=== PATIENT | male | born 1990 | race Two or more races ===

== ENCOUNTER 2022-05-20 02:52 | Emergency (ER) | payer OTHER ==
[2022-05-20 02:56] VITALS: BP 145/97
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
--- NOTE | 2022-05-20 07:32 | CT Report ---
PROCEDURE: HEAD WO INDICATIONS: ETOH/Head injury TECHNIQUE: Noncontrast 4.5 mm thick angled axial sections acquired from the foramen magnum to the vertex. For r adiation dose reduction, the following was used: automated exposure control, adjustment of mA and/or kV according to patient size. COMPARISON: None. FINDINGS: Image quality: Excellent. CSF spaces: Basal cisterns are patent. No extra-axial fluid collections. Ventricles are normal in size and shape. Brain: No midline shift. No intracranial masses or hemorrhage. Valdez-white matter interface is norm al. Skull and face: Calvarium and visualized facial bones are intact, without suspicious lesions. Sinuses: Visualized sinuses and mastoids are clear. IMPRESSION: No acute intracranial finding. Reviewed by: Parker Tucker MD on 05/20/2022 7:30 AM PDT Approved by: Parker Tucker MD on 05/20/2022 7:30 AM PDT Station ID: [id number]
--- NOTE | 2022-05-20 07:32 | CT Report ---
PROCEDURE: CERVICAL SPINE WO INDICATIONS: neck pain/ETOH TECHNIQUE: Noncontrast 3 mm thick sections acquired from the skull base to the T4 level. Sagittal and coronal r eformats were then constructed. For radiation dose reduction, the following was used: automated exp osure control, adjustment of mA and/or kV according to patient size. COMPARISON: None. FINDINGS: Image quality: Excellent. Bones: No fractures or dislocations. Visualized superior ribs are intact. Soft tissues: Prevertebral soft tissues are normal in thickness. No paravertebral hematomas. No ap ical pneumothoraces. IMPRESSION: No CT evidence of acute traumatic cervical spine injury. Reviewed by: Parker Tucker MD on 05/20/2022 7:31 AM PDT Approved by: Parker Tucker MD on 05/20/2022 7:31 AM PDT Station ID: [id number]
== END 2022-05-20 04:40 | disposition home or self-care (01) ==
LOC: EDBD → ED 02:52
DX: Z02.89 Encounter for other administrative examinations (principal); S50.312A Abrasion of left elbow, initial encounter; S09.90XA Unspecified injury of head, initial encounter; S16.1XXA Strain of muscle, fascia and tendon at neck level, initial encounter; Y35.893A Legal intervention involving other specified means, suspect injured, initial encounter; Y93.89 Activity, other specified; F17.200 Nicotine dependence, unspecified, uncomplicated
CPT/HCPCS: 99282; 99284